=== PATIENT | female | born 1985 | race Caucasian/White ===

== ENCOUNTER 2019-08-29 02:55 | Emergency (ER) | payer BC, SELFPAY ==
[2019-08-29 03:51] LABS: Barbiturates NEGATIVE (NEGATIVE); Benzodiazepines NEGATIVE (NEGATIVE); Cocaine NEGATIVE (NEGATIVE); METHAMPHETAM NEGATIVE (NEGATIVE); Methadone NEGATIVE (NEGATIVE); Opiates NEGATIVE (NEGATIVE); Phencyclidine NEGATIVE (NEGATIVE); THC Cannibis NEGATIVE (NEGATIVE)
[2019-08-29 04:01] LABS: Absolute Lymphocytes (CBC) 1.6 K/uL (0.7-4.9); Basophils % 0.8 % (0-1.3); Hematocrit 36.1 % (36.0-45.0); Lymphocytes % 22.8 % (15.3-44.8); RBC Red Blood Cell Count 4.59 M/uL (3.86-4.86)
[2019-08-29 04:05] LABS: Protime INR 0.96
[2019-08-29 04:16] LABS: ALT/SGPT 28 U/L (12-78); AST/SGOT 17 U/L (15-37); Albumin 3.4 g/dL (3.4-5.0); Alkaline Phosphatase 91 U/L (45-117); BUN Blood Urea Nitrogen 10 mg/dL (7-18); Bicarbonate 26 mmol/L (21-32); Bilirubin Direct < 0.1 mg/dL (0-0.2); Bilirubin Total 0.2 mg/dL (0.2-1.0); CKMB Creatine Kinase MB < 1.0 ng/mL (0.3-3.6); Creatine Phosphokinase 95 U/L (26-192); Glucose Level 112 mg/dL (74-106); Lipase 98 U/L (73-393); Magnesium 2.2 mg/dL (1.8-2.4); Potassium 3.9 mmol/L (3.5-5.1); Protein, Total 7.4 g/dL (6.4-8.2); Sodium Level 142 mmol/L (136-145); Troponin (Emerg Dept Use Only) < 0.02 ng/mL (0.0-0.045)
[2019-08-29] MEDS ORDERED: ONDANSETRON 4 MG/2 ML VIAL ONE (04:34)
[2019-08-29] MEDS ORDERED: KETOROLAC 30 MG/ML INJ ONE (04:34)
[2019-08-29 05:12] LABS: Urine Culture Reflex Order NOT NEEDED
[2019-08-29 05:12] LABS: Urine Blood TRACE (NEG); Urine Glucose NEGATIVE (NEG); Urine Protein NEGATIVE (NEG)
[2019-08-29 05:13] LABS: Urine Bacteria >50 /HPF (<20); Urine RBC <5 /HPF (NONE SEEN)
--- NOTE | 2019-08-29 06:53 | ER ---
Nurse's Notes [facility] Name: Lupe Crockett Age: 34 yrs Sex: Female : 1985 Arrival Date: 08/29/2019 Time: 02:56 Bed 8 Private MD: Diagnosis: Contusion of unspecified part of head;PSEUDOSEIZURES;Urinary tract infection, site not specified Presentation: 08/29 03:13 Presenting complaint: Mother states: Reports she had a seizure approximately 30 minutes ea ago, "I think she hit her head on both sides". Transition of care: patient was not received from another setting of care. Onset of symptoms was August 29, 2019. Risk Assessment: Do you want to hurt yourself or someone else? Patient reports no desire to harm self or others. Initial Sepsis Screen: Does the patient meet any 2 criteria? No. Patient's initial sepsis screen is negative. Does the patient have a suspected source of infection? No. Patient's initial sepsis screen is negative. Care prior to arrival: None. 03:13 Method Of Arrival: Wheelchair ea 03:13 Acuity: JUDY 3 ea Triage Assessment: 03:25 General: Appears in no apparent distress. Behavior is cooperative, Friend reports pt is ea complaining of light sensitivity . Pain: Complains of pain in forehead, right side of the back of head, right occipital area, left temporal area and right temporal area. Neuro: Level of Consciousness is awake, alert, obeys commands, Oriented to person, place, time, situation. Neuro: Cardiovascular: Patient's skin is warm and dry. Respiratory: Airway is patent Respiratory effort is even, unlabored, Respiratory pattern is regular, symmetrical. Derm: Skin is pink, warm \\T\\ dry. 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 - Social history:: Smoking status: Patient/guardian denies using tobacco. - Ebola Screening: : No symptoms or risks identified at this time. Screenin:18 Abuse screen: Denies threats or abuse. Nutritional screening: No deficits noted. ea Tuberculosis screening: No symptoms or risk factors identified. Fall Risk None identified. Assessment: 03:25 Reassessment: see triage assessment. ea 04:52 Reassessment: Patient and/or family updated on plan of care and expected duration. Pain ea level reassessed. Patient is alert, oriented x 3, equal unlabored respirations, skin warm/dry/pink. 05:12 Reassessment: Patient and/or family updated on plan of care and expected duration. Pain ea level reassessed. Patient is alert, oriented x 3, equal unlabored respirations, skin warm/dry/pink. 06:24 Reassessment: Patient and/or family updated on plan of care and expected duration. Pain ea level reassessed. Patient is alert, oriented x 3, equal unlabored respirations, skin warm/dry/pink. Awaiting on CT results. 07:00 Reassessment: Patient and/or family updated on plan of care and expected duration. Pain ea level reassessed. Patient is alert, oriented x 3, equal unlabored respirations, skin warm/dry/pink. Discharge instruction given to patient and family, verbalized the understanding of instruction. Pt left ED ambulatory accompanied by family. Pt tolerated well. Vital Signs: 03:21 BP 119 / 66; Pulse 79; Resp 18; Temp 97.8; Pulse Ox 100% ; Weight 111.13 kg; Height 5 ea ft. 4 in. (162.56 cm); 04:54 BP 112 / 65; Pulse 81; Resp 18; Pulse Ox 98% ; ea 05:30 BP 115 / 55; Pulse 67; Resp 18; Pulse Ox 97% on R/A; ea 06:25 BP 111 / 58; Pulse 66; Resp 18; Pulse Ox 100% ; ea 07:10 BP 138 / 88; Pulse 74; Resp 18; Pulse Ox 95% ; ea 03:21 Body Mass Index 42.05 (111.13 kg, 162.56 cm) ea Héctor Coma Score: 03:25 Eye Response: spontaneous(4). Verbal Response: confused(4). Motor Response: obeys ea commands(6). Total: 14. ED Course: 02:56 Patient arrived in ED. ds1 03:16 Fadi Ortiz MD is Attending Physician. tw4 03:17 Triage completed. ea 03:18 Patient has correct armband on for positive identification. Placed in gown. Bed in low ea position. Call light in reach. Side rails up X2. 03:18 Seizure precautions initiated. ea 03:22 Michelle Tamez, RN is Primary Nurse. ea 03:22 Arm band placed on right wrist. Patient placed in an exam room, on a stretcher, on ea pulse oximetry. 04:00 Inserted saline lock: 22 gauge in right antecubital area, using aseptic technique. ea 05:13 CT completed. Patient tolerated procedure well. Patient moved to CT via stretcher. Patient moved back from CT. 05:23 CT Head Brain wo Cont In Process Unspecified. EDMS 06:52 Beau Null MD is Referral Physician. tw4 07:08 No provider procedures requiring assistance completed. IV discontinued, intact, ea bleeding controlled, No redness/swelling at site. Pressure dressing applied. Administered Medications: 04:42 Drug: Ketorolac 15 mg Route: IVP; Site: right antecubital; ea 06:39 Follow up: Response: No adverse reaction; Pain is decreased ea 04:43 Drug: Zofran 4 mg Route: IVP; Site: right antecubital; ea 06:39 Follow up: Response: No adverse reaction ea Outcome: 06:53 Discharge ordered by . tw4 07:08 Discharged to home ambulatory, with family. ea 07:08 Condition: stable 07:08 Discharge instructions given to patient, family, Instructed on discharge instructions, follow up and referral plans. Demonstrated understanding of instructions, follow-up care, medications, Prescriptions given X 2. 07:11 Patient left the ED. ea Addendum: 09/01/2019 07:19 Addendum: Culture Results: Positive urine culture. No further action required. Bacteria e b sensitive to prescribed antibiotic. Signatures: Dispatcher [employer] EDMS Javier Jara Tina Cosme ds1 Michelle Tamez RN RN Fadi Obregon MD MD tw4 Zeinab Escudero Corrections: (The following items were deleted from the chart) 08/29 04:54 04:54 BP 112 / ???; Pulse 81bpm; Resp 18bpm; Pulse Ox 98%; ea ea
--- NOTE | 2019-08-29 06:53 | EDPHYS ---
Physician Documentation [facility] Name: Lupe Crockett Age: 34 yrs Sex: Female : 1985 Arrival Date: 08/29/2019 Time: 02:56 Bed 8 Private MD: ED Physician Fadi Ortiz HPI: 08/29 04:52 This 34 yrs old Female presents to ER via Wheelchair with complaints of tw4 Seizure. 04:52 The patient presents after having a single isolated seizure. Character of seizure(s): tw4 Loss of consciousness: it is not known if the patient experienced loss of consciousness, Motor activity: blank stare, Incontinence: none, Apnea: the patient did not experience apnea, Circulation: the patient did not experience evidence of pulse disturbance. Seizure onset: just prior to arrival. Context: the seizure(s) was witnessed, by family, occurred. Seizure Hx: pseudoseizures. Associated injury: The patient did not suffer any apparent associated injury. The patient has not experienced similar symptoms in the past. 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 - Social history:: Smoking status: Patient/guardian denies using tobacco. - Ebola Screening: : No symptoms or risks identified at this time. ROS: 04:52 Constitutional: Negative for fever, chills, and weight loss, Eyes: Negative for injury, tw4 pain, redness, and discharge, Cardiovascular: Negative for chest pain, palpitations, and edema, Respiratory: Negative for shortness of breath, cough, wheezing, and pleuritic chest pain, Abdomen/GI: Negative for abdominal pain, nausea, vomiting, diarrhea, and constipation, Back: Negative for injury and pain, MS/Extremity: Negative for injury and deformity, Skin: Negative for injury, rash, and discoloration. 04:52 Neuro: Positive for seizure activity, Negative for altered mental status, dizziness, gait disturbance, headache, hearing loss, loss of consciousness, numbness, speech changes, syncope, near syncope, tingling, tinnitus, tremor, visual changes. Exam: 04:52 Constitutional: This is a well developed, well nourished patient who is awake, alert, tw4 and in no acute distress. Head/Face: Normocephalic, atraumatic. Chest/axilla: Normal chest wall appearance and motion. Nontender with no deformity. No lesions are appreciated. Cardiovascular: Regular rate and rhythm with a normal S1 and S2. No gallops, murmurs, or rubs. Normal PMI, no JVD. No pulse deficits. Respiratory: Lungs have equal breath sounds bilaterally, clear to auscultation and percussion. No rales, rhonchi or wheezes noted. No increased work of breathing, no retractions or nasal flaring. Abdomen/GI: Soft, non-tender, with normal bowel sounds. No distension or tympany. No guarding or rebound. No evidence of tenderness throughout. Back: No spinal tenderness. No costovertebral tenderness. Full range of motion. MS/ Extremity: Pulses equal, no cyanosis. Neurovascular intact. Full, normal range of motion. Neuro: Awake and alert, GCS 15, oriented to person, place, time, and situation. Cranial nerves II-XII grossly intact. Motor strength 5/5 in all extremities. Sensory grossly intact. Cerebellar exam normal. Normal gait. Vital Signs: 03:21 BP 119 / 66; Pulse 79; Resp 18; Temp 97.8; Pulse Ox 100% ; Weight 111.13 kg; Height 5 ea ft. 4 in. (162.56 cm); 04:54 BP 112 / 65; Pulse 81; Resp 18; Pulse Ox 98% ; ea 05:30 BP 115 / 55; Pulse 67; Resp 18; Pulse Ox 97% on R/A; ea 06:25 BP 111 / 58; Pulse 66; Resp 18; Pulse Ox 100% ; ea 07:10 BP 138 / 88; Pulse 74; Resp 18; Pulse Ox 95% ; ea 03:21 Body Mass Index 42.05 (111.13 kg, 162.56 cm) ea Faulkner Coma Score: 03:25 Eye Response: spontaneous(4). Verbal Response: confused(4). Motor Response: obeys ea commands(6). Total: 14. MDM: 03:16 Patient medically screened. tw4 04:52 Differential diagnosis: seizure. Data reviewed: vital signs, nurses notes. Counseling: tw4 I had a detailed discussion with the patient and/or guardian regarding: the historical points, exam findings, and any diagnostic results supporting the discharge/admit diagnosis, lab results. 06:54 Data reviewed: radiologic studies, CT scan. Data interpreted: Pulse oximetry: tw4 Interpretation: normal. Medication response: Toradol relieved patient's pain. The symptoms have resolved. Response to treatment: the patient's symptoms have resolved after treatment, and as a result, I will discharge patient. Special discussion: Based on the patient's history, exam and DX evaluation, there is no indication for emergent intervention or inpatient TX. It is understood by the patient/guardian that if the SXs persist or worsen they need to return immediately for re-evaluation. I discussed with the patient/guardian in detail that at this point there is no indication for admission to the hospital. It is understood, however, that if the symptoms persist or worsen the patient needs to return immediately for re-evaluation. 08/29 03:11 Order name: UDS; Complete Time: 06:53 08/29 06:54 Interpretation: Within normal limits. 08/29 03:11 Order name: Basic Metabolic Panel; Complete Time: 06:53 08/29 06:53 Interpretation: Normal except: CL 111; GLUC 112. 08/29 03:11 Order name: CBC with Diff; Complete Time: 06:53 08/29 06:53 Interpretation: Normal except: MCV 78.6; MCHC 36.1. 08/29 03:11 Order name: Ckmb; Complete Time: 06:53 08/29 06:54 Interpretation: Within normal limits. 08/29 03:11 Order name: CPK; Complete Time: 06:53 08/29 06:54 Interpretation: Within normal limits: CPK 95. 08/29 03:11 Order name: Hepatic Function; Complete Time: 06:53 08/29 06:53 Interpretation: Normal except: GLOB 4.0; A/G 0.9. 08/29 03:11 Order name: Lipase; Complete Time: 06:53 08/29 06:54 Interpretation: Within normal limits: LIP 98. 08/29 03:11 Order name: Magnesium; Complete Time: 06:53 [facility] 08/29 06:54 Interpretation: Within normal limits: MG 2.2. 08/29 03:11 Order name: Protime (+inr); Complete Time: 06:53 08/29 03:11 Order name: Ptt, Activated; Complete Time: 06:53 [facility] 08/29 03:11 Order name: Troponin (emerg Dept Use Only); Complete Time: 06:53 [facility] 08/29 03:15 Order name: Urine Culture [facility] 08/29 03:15 Order name: Urine Microscopic Only; Complete Time: 06:53 [facility] 08/29 06:53 Interpretation: Normal except: UBACT >50. [facility] 08/29 03:15 Order name: Urine Dipstick--Ancillary (enter results); Complete Time: 06:53 [facility] 08/29 03:11 Order name: Cardiac monitoring; Complete Time: 03:14 08/29 03:11 Order name: IV Saline Lock; Complete Time: 05:01 [facility] 08/29 03:11 Order name: Labs collected and sent; Complete Time: 05:01 08/29 03:11 Order name: NPO; Complete Time: 03:13 08/29 03:11 Order name: O2 Per Protocol; Complete Time: 03:13 08/29 03:11 Order name: O2 Sat Monitoring; Complete Time: 03:13 08/29 03:11 Order name: Urine Dipstick-Ancillary (obtain specimen); Complete Time: 03:13 [facility] 08/29 03:15 Order name: Urine --Ancillary (enter results); Complete Time: 06:53 [facility] 08/29 04:29 Order name: CT Head Brain wo Cont ea Administered Medications: 04:42 Drug: Ketorolac 15 mg Route: IVP; Site: right antecubital; ea 06:39 Follow up: Response: No adverse reaction; Pain is decreased ea 04:43 Drug: Zofran 4 mg Route: IVP; Site: right antecubital; ea 06:39 Follow up: Response: No adverse reaction ea Disposition: 08/29/19 06:53 Discharged to Home. Impression: Contusion of unspecified part of head, PSEUDOSEIZURES, Urinary tract infection, site not specified. - Condition is Stable. - Discharge Instructions: Contusion, Head Injury, Adult, [id number]. - Prescriptions for Zofran 4 mg Oral Tablet - take 1 tablet by ORAL route every 12 hours As needed; 20 tablet. Macrobid 100 mg Oral Capsule - take 1 capsule by ORAL route every 12 hours for 7 days; 14 capsule. Fluconazole 150 mg Oral Tablet - take 1 tablet by ORAL route once daily; 1 tablet. - Family Work Release, Medication Reconciliation Form, Thank You Letter, Antibiotic Education, Prescription Opioid Use form. - Follow up: Private Physician; When: Upon discharge from the Emergency Department; Reason: Recheck today's complaints, Continuance of care. Follow up: Beau Null MD; When: Upon discharge from the Emergency Department; Reason: Recheck today's complaints, Continuance of care. - Problem is an ongoing problem. - Symptoms have improved. Signatures: Dispatcher [employer] EDMichelle Alex RN RN ea Wadley, Terrence, MD MD tw4 Corrections: (The following items were deleted from the chart) 06:58 06:53 08/29/2019 06:53 Discharged to Home. Impression: Contusion of unspecified part of tw4 head; PSEUDOSEIZURES. Condition is Stable. Forms are Medication Reconciliation Form, Thank You Letter, Antibiotic Education, Prescription Opioid Use. Follow up: Private Physician; When: Upon discharge from the Emergency Department; Reason: Recheck today's complaints, Continuance of care. Follow up: Beau Null; When: Upon discharge from the Emergency Department; Reason: Recheck today's complaints, Continuance of care. Problem is an ongoing problem. Symptoms have improved. tw4 07:11 06:58 08/29/2019 06:53 Discharged to Home. Impression: Contusion of unspecified part of ea head; PSEUDOSEIZURES; Urinary tract infection, site not specified. Condition is Stable. Discharge Instructions: Contusion, Head Injury, Adult, [id number]. Forms are Medication Reconciliation Form, Thank You Letter, Antibiotic Education, Prescription Opioid Use. Follow up: Private Physician; When: Upon discharge from the Emergency Department; Reason: Recheck today's complaints, Continuance of care. Follow up: Beau Null; When: Upon discharge from the Emergency Department; Reason: Recheck today's complaints, Continuance of care. Problem is an ongoing problem. Symptoms have improved. tw4
[2019-08-29 07:24] VITALS: TEMP 97.8
[2019-08-29 07:34] VITALS: BP 138/88; O2SAT 95
--- NOTE | 2019-08-29 10:32 | RAD REPORT ---
EXAM DESCRIPTION: CT - Head Brain Wo Cont - 08/29/2019 6:27 am CLINICAL HISTORY: The patient is 34 years old and is Female; HEADACHE TECHNIQUE: Axial computed tomography images of the head/brain without intravenous contrast. Sagitt al and coronal reformatted images were created and reviewed. This CT exam was performed using one o r more of the following dose reduction techniques: automated exposure control, adjustment of the mA and/or kV according to patient size, and/or use of iterative reconstruction technique. COMPARISON: No relevant prior studies available. FINDINGS: BRAIN: Unremarkable. The jay-white matter differentiation is preserved . No hemorrhag e. No significant white matter disease. No edema. No extra-axial fluid collections. VENTRICLES: Unremarkable. No ventriculomegaly. BONES/JOINTS: No acute fracture. SOFT TISSUES: Unremarkable. SINUSES: Unremarkable as visualized. No acute sinusitis. MASTOID AIR CELLS: Unremarkable as visualized. No mastoid effusion. ORBITS: Unremarkable as visualized. IMPRESSION: No acute intracranial findings. Electronically signed by: Elisa Roland MD 08/29/2019 6:19 AM RIGGING UP MAN Due to temporary technical issues with the PACS/Fluency reporting system, reports are being signed by the in house radiologist as a courtesy to ensure prompt reporting. The interpreting radiologist is f ully responsible for the content of the report.
== END 2019-08-29 07:11 | disposition home or self-care (01) ==
LOC: ER 02:55
DX: S00.93XA Contusion of unspecified part of head, initial encounter (principal); R56.9 Unspecified convulsions; N39.0 Urinary tract infection, site not specified; W19.XXXA Unspecified fall, initial encounter; Y93.9 Activity, unspecified; Y92.9 Unspecified place or not applicable
CPT/HCPCS: 87088; 85025; 87086; 80048; 36415; 83735; 82550; 81025; 85610; 80076; 80307 ×8; 85730; 87077; 87186; 84484; 82553; 83690; 70450; 96375; 96374; 99284; J2405; 81003; 81015